=== PATIENT | female | born 1955 | race Caucasian/White ===

== ENCOUNTER → 2016-09-14 | Outpatient (CLI) | payer OTHER ==
--- NOTE | 2016-09-14 13:48 | REPMRS ---
Patient History The patient states she had a clinical breast exam in 10/2015. Patient is postmenopausal. Family history of cervical/uterine cancer in paternal grandmother. Took hormonal contraceptives for 5 years. Took estrogen for 3 months. Digital Woman Screen Mammo: September 14, 2016 - Exam #: [id number] Bilateral CC and MLO view(s) were taken. Technologist: Chelsi Horta, Technologist Prior study comparison: March 10, 2015, digital woman screen mammo performed at [facility]. November 07, 2013, bilateral bilat screen digital mammo, performed at [facility] ([facility]). November 28, 2011, bilateral bilat screen digital mammo, performed at [facility] ([facility]). FINDINGS: There are scattered fibroglandular densities. There has been no change in the appearance of the mammogram from the prior studies. There is a mild amount of scattered fibroglandular density which is fairly symmetric. There is no interval development of dominant mass, architectural distortion, or clustered microcalcification suggestive of malignancy. ASSESSMENT: BI-RADS/ACR category 1 mammogram. Negative. Recommendation Routine screening mammogram in 1 year (for women over age 40). This mammogram was interpreted with the aid of an FDA-approved computer-aided dectection system. Electronically Signed By: Kuldip Correa MD 09/14/16 [id number]
== END ==
LOC: M WHC 12:53
PROVIDERS: ATTEND Nurse Practitioner Adult Health
DX: Z12.31 Encounter for screening mammogram for malignant neoplasm of breast (principal); Z78.0 Asymptomatic menopausal state

== ENCOUNTER → 2018-03-08 | Outpatient (CLI) | payer OTHER | LOC: M WHC 09:25 | DX: Z12.31 Encounter for screening mammogram for malignant neoplasm of breast (principal) ==

== ENCOUNTER → 2020-04-19 | Outpatient (CLI) | payer BC ==
--- NOTE | 2020-04-19 13:03 | REPMRS ---
Patient History The patient states she has not had a clinical breast exam in over a year. Patient is postmenopausal. Family history of endometrial cancer in paternal grandmother. Took hormonal contraceptives for 5 years. Took estrogen for 2 years 3 months. 3D TOMOSYNTHESIS WAS PERFORMED. The Cecy Tolentino lifetime risk for breast cancer is 5.6 %. YONATAN Coates. Digital Woman Screen Mammo: April 19, 2020 - Exam #: [id number] Bilateral CC and MLO view(s) were taken. Technologist: Mary Degroot, Technologist Prior study comparison: March 08, 2018, bilateral digital woman screen mammo performed at [facility]. September 14, 2016, digital woman screen mammo performed at [facility]. FINDINGS: The breast tissue is heterogeneously dense. This may lower the sensitivity of mammography. There has been no change in the appearance of the mammogram from the prior studies. There is a moderate amount of residual fibroglandular tissue which is fairly symmetric. There is no interval development of dominant mass, areas of architectural distortion, or clustered microcalcification typical of malignancy. Assessment: BI-RADS/ACR category 1 mammogram. Negative Mammogram. Recommendation Routine screening mammogram in 1 year (for women over age 40). This mammogram was interpreted with the aid of an FDA-approved computer-aided dectection system. Electronically Signed By: Miko Lambert MD 04/19/20 0539
== END ==
LOC: M WHC 10:20
PROVIDERS: ATTEND Nurse Practitioner Adult Health
DX: Z12.31 Encounter for screening mammogram for malignant neoplasm of breast (principal); Z78.0 Asymptomatic menopausal state